=== PATIENT | female | born 1960 | race Caucasian/White ===

== ENCOUNTER 2016-09-30 12:31 | Emergency (ER) | payer OTHER ==
[2016-09-30 15:54] VITALS: BP 156/98
== END 2016-09-30 15:54 | disposition home or self-care (01) ==
LOC: ED 12:31
DX: M25.562 Pain in left knee (principal); I10 Essential (primary) hypertension

== ENCOUNTER 2019-10-09 16:36 | Emergency (ER) | payer SELFPAY ==
[~2019-10-09] VITALS: Ht 152.4 cm; Wt 108.0 kg
[2019-10-09 16:52] VITALS: BP 146/59; Ht 152.4 cm; Wt 108.0 kg
== END 2019-10-09 19:17 | disposition home or self-care (01) ==
LOC: ED 16:36
DX: M54.41 Lumbago with sciatica, right side (principal); I10 Essential (primary) hypertension
CPT/HCPCS: J1885; J2270; Q0162